=== PATIENT | female | born 1990 | race Caucasian/White ===

== ENCOUNTER 2017-02-11 10:25 | Emergency (ER) | payer MEDICAID, OTHER ==
--- NOTE | 2017-02-11 11:33 | UC ---
Lower Extremity/Ankle HPI - HPI Summary HPI Summary: injured right lateral foot and 5th toe 2days ago-- - History of Current Complaint Chief Complaint: UCLowerExtremity Stated Complaint: RIGHT LITTLE TOE INJURY Time Seen by Provider: 02/11/17 11:20 Hx Obtained From: Patient Hx Last Menstrual Period: 05/29/14 ?: No Onset/Duration: Sudden Onset, Lasting Days - 2, Still Present Severity Initially: Moderate Severity Currently: Moderate Aggravating Factor(s): Standing, Ambulation Alleviating Factor(s): Rest, Elevation, Other - has been taking some old hydrocodone from a tooth surgery Able to Bear Weight: Yes - with limp and guarding lateral side of foot - Allergies/Home Medications Allergies/Adverse Reactions: Allergies Allergy/AdvReac Type Severity Reaction Status Date / Time Amoxicillin Allergy GI Upset Verified 02/11/17 11:28 Home Medications: Home Medications HYDROcodone/ACETAMIN 5-325 MG* [[place] 5-325 TAB*] 1 tab BID PRN 02/11/17 [ History Confirmed 02/11/17] QUEtiapine TAB* [Seroquel TAB*] 1 tab BEDTIME 02/11/17 [History Confirmed ] PMH/Surg Hx/FS Hx/Imm Hx Previously Healthy: No Psychological History: Bipolar Disorder - Surgical History Surgical History: Yes Surgery Procedure, Year, and Place: 3 c-sections. tubal ligation - Family History Known Family History: Positive: Hypertension, Diabetes - Social History Occupation: Unemployed Lives: With Family Alcohol Use: Rare Substance Use Type: None Smoking Status (MU): Heavy Every Day Tobacco Smoker Type: Cigarettes Amount Used/How Often: 1/2 pack daily Have You Smoked in the Last Year: Yes Household Exposure Type: Cigarettes Cessation Counseling: Counseled 3+Min - 10 Min - Immunization History Most Recent Influenza Vaccination: 01/2004 Most Recent Tetanus Shot: 02/13/14 Most Recent Pneumonia Vaccination: never Review of Systems Constitutional: Negative Skin: Bruising - lateral right foot 4 and 5th toes Eyes: Negative ENT: Negative Respiratory: Negative Cardiovascular: Negative Gastrointestinal: Negative Genitourinary: Negative Motor: Negative Neurovascular: Negative Musculoskeletal: Negative, Edema - leateral right foot Neurological: Negative Psychological: Negative Is Patient Immunocompromised?: No All Other Systems Reviewed And Are Negative: Yes Physical Exam Triage Information Reviewed: Yes Appearance: Well-Appearing, Pain Distress - right lateral foot, Obese Vital Signs Reviewed: Yes Eye Exam: Normal Eyes: Positive: Conjunctiva Clear ENT Exam: Normal ENT: Positive: Normal ENT inspection, Hearing grossly normal, Pharynx normal. Negative: Nasal congestion, Trismus, Muffled voice, Hoarse voice Dental Exam: Other - no teeth Neck exam: Normal Neck: Positive: Supple, Nontender Respiratory Exam: Normal Respiratory: Positive: Chest non-tender, No respiratory distress, No accessory muscle use Cardiovascular Exam: Normal Cardiovascular: Positive: RRR, Pulses Normal, Brisk Capillary Refill Musculoskeletal Exam: Other Musculoskeletal: Positive: Strength Intact, ROM Limited @ - right 4/5 toes, Edema @ - lateral right foot Neurological Exam: Normal Psychological Exam: Normal Skin Exam: Normal Diagnostics - Radiology No standard instances Xray Interpretation: No Acute Changes - slightly displaced and impacted fx of base of proximal 5th phalange right foot Radiology Interpretation Completed By: ED Physician Lower Extremity Course/Dx - Course Course Of Treatment: Rest, Post op shoe, crutches, pain control follow with ortho - Differential Dx/Diagnosis Provider Diagnoses: non displaced right 5th toe fracture Discharge - Discharge Plan Condition: Stable Disposition: HOME Prescriptions: Hydrocodone-Acetaminophen [Hydrocodone/Acetaminophen 5-325 mg] 1 tab PO Q6HR PRN #16 tab MDD 4 PRN Reason: Pain - Moderate To Severe Ibuprofen TAB* [Motrin TAB* 600 MG] 600 mg PO Q6H PRN #40 tab PRN Reason: Pain - Mild To Moderate Patient Education Materials: Crutch Instructions (ED), Toe Fracture (ED) Referrals: Chente Sun MD [Medical Doctor] - 5 Days
[2017-02-11 11:35] VITALS: BP 123/79
--- NOTE | 2017-02-11 11:54 | RAD ---
INDICATION: Right foot injury. TECHNIQUE: 3 views of the right foot were obtained. FINDINGS: There is lateral soft tissue swelling. There is a transverse slightly impacted fracture of the proximal aspect of the fifth proximal phalanx. The fracture fragments are otherwise nondisplaced. No other fractures are seen. Joint spaces appear maintained. IMPRESSION: FRACTURE OF THE FIFTH PROXIMAL PHALANX.
== END 2017-02-11 12:30 | disposition home or self-care (01) ==
LOC: UCCORT 10:25
DX: S92.911A Unspecified fracture of right toe(s), initial encounter for closed fracture (principal); X58.XXXA Exposure to other specified factors, initial encounter; Y93.9 Activity, unspecified; Y92.9 Unspecified place or not applicable; F31.9 Bipolar disorder, unspecified; Z72.0 Tobacco use
CPT/HCPCS: 99213; G0463

== ENCOUNTER 2018-08-09 19:17 | Emergency (ER) | payer OTHER ==
[2018-08-09 19:34] VITALS: BP 136/56
--- NOTE | 2018-08-09 19:47 | UC ---
Lower Extremity/Ankle HPI - HPI Summary HPI Summary: 27 yo SAHM with bipolar disease, with 5 day history of mild swelling around the ankle, without associated calf pain or shortness of breath. She is concerned that she might have edema, which her mom has, although neither she nor her mom ( whom she texted) know what the cause of her mother's edema is. Toes have been painful for the past day or so, without swelling, and no hx of injury. No hx of renal disease. Has high weight but states that she has a hx of hypoglycemia. - History of Current Complaint Chief Complaint: UCLowerExtremity Stated Complaint: RIGHT LOWER LEG/FOOT SWELLING/PAIN Time Seen by Provider: 08/09/18 19:37 Hx Obtained From: Patient Hx Last Menstrual Period: 08/09/18 ?: No Onset/Duration: Gradual Onset, Lasting Days - 5 Severity Initially: Mild Severity Currently: Mild Pain Intensity: 5 Aggravating Factor(s): Nothing Alleviating Factor(s): Nothing - but has not been sleeping recumbent. Able to Bear Weight: Yes - Risk Factors Gout Risk Factors: Obesity DVT Risk Factors: Negative Septic Arthritis Risk Factor: Negative - Allergies/Home Medications Allergies/Adverse Reactions: Allergies Allergy/AdvReac Type Severity Reaction Status Date / Time amoxicillin Allergy Swelling Verified 08/09/18 19:35 Of Face,Lips,& Throat PMH/Surg Hx/FS Hx/Imm Hx Previously Healthy: Yes - obese Psychological History: Depression, Bipolar Disorder - Surgical History Surgical History: Yes Surgery Procedure, Year, and Place: 3 c-sections. tubal ligation - Family History Known Family History: Positive: Hypertension, Diabetes, Other - mother has edema - Social History Occupation: Employed Full-time - [employer] Lives: With Family Alcohol Use: Rare Substance Use Type: None Smoking Status (MU): Heavy Every Day Tobacco Smoker Type: Cigarettes Amount Used/How Often: 1/2 pack daily Have You Smoked in the Last Year: Yes Household Exposure Type: Cigarettes - Immunization History Most Recent Influenza Vaccination: 01/2004 Most Recent Tetanus Shot: 02/13/14 Most Recent Pneumonia Vaccination: never Review of Systems All Other Systems Reviewed And Are Negative: Yes Constitutional: Positive: Negative Skin: Positive: Negative Eyes: Positive: Negative ENT: Positive: Negative Respiratory: Negative: Shortness Of Breath, Cough Cardiovascular: Negative: Palpitations, Chest Pain Gastrointestinal: Positive: Negative Genitourinary: Positive: Other - no awareness of renal disease. Negative: Dysuria, Hematuria Musculoskeletal: Positive: Arthralgia, Edema, Other: - hx of cartilage tear right knee. Negative: Calf Tenderness Psychological: Positive: Other - has not used quetiapine in the past 2 years Is Patient Immunocompromised?: No Physical Exam Triage Information Reviewed: Yes Appearance: Well-Appearing, No Pain Distress, Obese Vital Signs: Initial Vital Signs Temp 97.8 F 08/09/18 19:30 Pulse 106 08/09/18 19:30 Resp 20 08/09/18 19:30 BP 136/56 08/09/18 19:30 Pulse Ox 100 08/09/18 19:30 Eye Exam: Normal ENT: Positive: Pharynx normal, TMs normal Neck: Positive: Supple, Nontender, No Lymphadenopathy Respiratory: Positive: Lungs clear, Normal breath sounds Cardiovascular: Positive: RRR, No Murmur Abdomen Description: Positive: Nontender, No Organomegaly, Soft Musculoskeletal Exam: Normal, Other - negative Jessica's. Circumference of right calf/ankle and left calf/ankle are 44cm and 26 cm respectively, less than 0.5cm difference Musculoskeletal: Positive: Strength Intact, ROM Intact, Edema @ - trace of pitting edema both ankles, none in feet., Other: - mild tenderness in forefoot, no joint swelling, no eythema or warmth. Neurological: Positive: Alert, Muscle Tone Normal Skin Exam: Normal Lower Extremity Course/Dx - Course Course Of Treatment: leg elevation for dependency edema, increase water, decrease salt. --supportive shoe instead of flip flops. - Differential Dx/Diagnosis Differential Diagnosis/HQI/PQRI: Cellulitis, Contusion, DVT, Sprain, Strain Provider Diagnosis: Dependent edema Discharge - Sign-Out/Discharge Documenting (check all that apply): Patient Departure All imaging exams completed and their final reports reviewed: No Studies - Discharge Plan Condition: Stable Disposition: HOME Patient Education Materials: Edema (ED) Referrals: Vanessa Luis PA [Primary Care Provider] - Additional Instructions: Your findings are most suggestive of dependency edema, and should improve with elevation, decreased salt and increased water. use of compression stockings can also help. The ache in your toes could be from footwear, and I suggestive wearing a closed supportive shoe instead of flip flops. Use ibuprofen as needed for pain in the foot. - Billing Disposition and Condition Condition: STABLE Disposition: Home
== END 2018-08-09 20:11 | disposition home or self-care (01) ==
LOC: UCCORT 19:17
DX: R60.9 Edema, unspecified (principal); F17.210 Nicotine dependence, cigarettes, uncomplicated; F31.9 Bipolar disorder, unspecified
CPT/HCPCS: 99211; G0463